=== PATIENT | male | born 2000 | race Caucasian/White ===

== ENCOUNTER 2022-12-15 21:13 | Emergency (ER) | payer BC, SELFPAY ==
--- NOTE | ~2022-12-15 | XR_ITS ---
EXAMINATION: XR ankle RT min 3V DATE: 12/15/2022 22:07 INDICATION: Lateral right ankle pain and swelling post injury TECHNIQUE: Anteroposterior, oblique, mortise, and lateral views of the right ankle were obtained. COMPARISON: None. FINDINGS: Alignment is normal. No fracture. Joint spaces are well maintained. No ankle joint effusion. The so ft tissues are unremarkable. IMPRESSION: 1. Negative right ankle radiographs. Reviewed, dictated and finalized at location A. CUTTER OPERATOR
[2022-12-15 21:19] VITALS: BP 134/79; PULSE 95; RESP 20; TEMP 37.1; O2SAT 100
[2022-12-15] MEDS: HYDROcodone/acetaminophen (*CRX) 5-325 MG TABLET 2 TAB PO (22:10)
--- NOTE | 2022-12-15 22:42 | ED.GENADULT ---
HPI - General Adult General Chief complaint: Extremity Injury, Lower Stated complaint: Right ankle pain Time Seen by Provider: 12/15/22 21:20 History of Present Illness HPI narrative: This is a 22-year-old male presenting to ED with right ankle pain. Patient is playing basketball when he stepped off of his right foot and felt a popping sensation in the back of his leg. After that he had significant pain was having difficulty walking. He came to the emergency room for evaluation. Denies numbness tingling weakness in extremity. He denies steroid use or recent antibiotics. Related Data Allergies Allergy/AdvReac Type Severity Reaction Status Date / Time egg Allergy Mild Verified 03/16/10 19:09 milk Allergy Mild Verified 03/16/10 19:09 Exam Narrative: APPEARANCE: No apparent distress. Head: atraumatic. EYES: EOMI, NOSE: Atraumatic NECK: Trachea midline RESPIRATORY: No increased rate of breathing CARDIOVASCULAR: RRR, ABDOMINAL: Non-distended MUSCULOSKELETAl: Tenderness palpation over the Achilles on the right. Point of care ultrasound revealed a tendon defect. Vazquez test is positive on right negative on the left. NEURO: Alert. Moving 4/4 extremities SKIN:: Warm, dry. Normal color PSYCHIATRIC: Normal affect Course Vital Signs Vital signs: Vital Signs Temperature 98.8 F 12/15/22 21:19 Pulse Rate 95 12/15/22 21:19 Respiratory Rate 20 12/15/22 21:19 Blood Pressure 134/79 12/15/22 21:19 Pulse Oximetry 100 12/15/22 21:19 Oxygen Delivery Room Air 12/15/22 21:19 Temperature 98.8 F 12/15/22 21:19 Pulse Rate 95 12/15/22 21:19 Respiratory Rate 20 12/15/22 21:19 Blood Pressure 134/79 12/15/22 21:19 Pulse Oximetry 100 12/15/22 21:19 Oxygen Delivery Room Air 12/15/22 21:19 Procedures Orthopedic Splinting/Casting Injury #1: Splinting/Casting Date: 12/15/22 Side: right Lower Extremity Injury Location: ankle Lower Extremity Immobilizer: posterior splint Splint: customized in ED Pre-Procedure Neuro Vascular Exam: normal Post-Procedure Neuro Vascular Exam: normal Other Orthopedic Equipment: crutches Medical Decision Making MDM Narrative Medical decision making narrative: -Presentation: 22-year-old male presenting with pain in his ankl -DDX includes but is not limited to:e ankle pain, ankle strain, Achilles tendon rupture -Co-morbidities complicating care: none -Social determinants of health: none -External Chart Review: none -Hx from independent Sources: family -Discussion of Management/Consultants: none -Independent interpretation of studies: point of care ultrasound revealed a tendon defect. Patient's physical exam is consistent with Achilles tendon rupture. Patient will be splinted with a posterior mold in slight plantar flexion. He will be given crutches. He will be given orthopedic follow-up. Dx tests considered but not ordered: None -Procedures: posterior mold splint in slight plantar flexion -Interventions: [place] -Shared decision making / Disposition: I discussed the patient's injury with him and his family. They are comfortable following up with orthopedics on an outpatient basis. He will be given Motrin Tylenol and [place] for breakthrough pain. All questions answered. -RX Motrin, Tylenol, [place] Vital Signs Vital Signs: Vital Signs Temperature 98.8 F 12/15/22 21:19 Pulse Rate 95 12/15/22 21:19 Respiratory Rate 20 12/15/22 21:19 Blood Pressure 134/79 12/15/22 21:19 Pulse Oximetry 100 12/15/22 21:19 Oxygen Delivery Room Air 12/15/22 21:19 Temperature 98.8 F 12/15/22 21:19 Pulse Rate 95 12/15/22 21:19 Respiratory Rate 20 12/15/22 21:19 Blood Pressure 134/79 12/15/22 21:19 Pulse Oximetry 100 12/15/22 21:19 Oxygen Delivery Room Air 12/15/22 21:19 Discharge Plan Discharge Clinical Impression: Achilles tendon rupture P
== END 2022-12-15 22:58 | disposition home or self-care (01) ==
PROVIDERS: Emergency Provider Emergency Medicine; PCP Internal Medicine
DX: S86.011A Strain of right Achilles tendon, initial encounter (principal); X50.9XXA Other and unspecified overexertion or strenuous movements or postures, initial encounter; Y93.67 Activity, basketball
CPT/HCPCS: 29515; 73610; 99283; A9270

== ENCOUNTER → 2022-12-20 08:59 | Outpatient (CLI) | payer BC, SELFPAY ==
--- NOTE | ~2022-12-20 | MR_ITS ---
EXAMINATION: MR ankle RT wo con DATE: 12/20/2022 09:48 INDICATION: Achilles tendon rupture. TECHNIQUE: Magnetic resonance imaging (MRI) of the right ankle was performed without intravenous cont rast. Sequences included sagittal PD-weighted FS FSE, sagittal PD-weighted FSE, coronal PD-weighted F S FSE, coronal PD-weighted FSE, axial PD-weighted FS FSE, and axial PD-weighted FSE. COMPARISON: Right ankle radiographs 12/15/2022 FINDINGS: Medial ankle ligaments: The superficial and deep components of the deltoid ligament are normal. Lateral ankle ligaments: Anterior and posterior talofibular ligaments, calcaneofibular ligament, and the posterior tibiofibula r ligament are normal. There are changes of prior sprain of anterior tibiofibular ligament characteri zed by increased signal intensity. Tendons: The peroneal tendons and anterior and medial ankle tendons are normal. There is severe Achilles tendi nopathy. There is a full-thickness tear of Achilles tendon 8.5 cm proximal to the distal insertion wi th overlapping torn ends of the tendon. Plantar fascia: Normal. Bones/other: Bone alignment is normal. No fracture. The talar dome is normal. Fluid: There is no joint effusion. There is subcutaneous edema about the ankle and foot. IMPRESSION: 1. Full-thickness tear of Achilles tendon 8.5 cm proximal to the distal attachment. Reviewed, dictated and finalized at location A. [employer] PROOF[employer]ER IMPRESSION: 1. Full-thickness tear of Achilles tendon 8.5 cm proximal to the distal attachm ent.
== END ==
PROVIDERS: PCP Internal Medicine; Visit Provider Orthopaedic Surgery
DX: S86.011D Strain of right Achilles tendon, subsequent encounter (principal); X58.XXXD Exposure to other specified factors, subsequent encounter
CPT/HCPCS: 73721